=== PATIENT | male | born 2000 | race Hispanic/Latino ===

== ENCOUNTER 2022-09-25 09:08 | Emergency (ER) | payer OTHER, SELFPAY ==
[2022-09-25 09:09] VITALS: BP 166/97; PULSE 96; RESP 18; TEMP 36.3; O2SAT 99; BMI 28.7
--- NOTE | 2022-09-25 09:20 | RAD_ITS ---
STUDY: X-RAY - LEFT HAND, ATTENTION INDEX FINGER REASON FOR EXAM: Male, 22 years old. Laceration. TECHNIQUE: 3 view(s) of the finger were obtained. COMPARISON: None. FINDINGS: Normal metacarpal head. Normal metacarpophalangeal joint. Normal proximal phalanx. Normal middle phalanx. Nondisplaced avulsion type fracture at the base of the distal phalanx of the index finger. Tiny fracture at the tuft of the distal phalanx of the index finger. Normal proximal interphalangeal joint. Normal distal interphalangeal joint. Soft tissue laceration overlying the distal phalanx of the index finger. RAD/Finger(s) Min 2 Views IMPRESSION: Tiny fracture at the tuft of the distal phalanx of the index finger with overlying soft tissue laceration. Nondisplaced avulsion type fracture of the volar aspect of the base of the distal phalanx of the index finger. Electronically Signed: Checo Abrams MD at 10:08 EDT ,
--- NOTE | 2022-09-25 09:22 | EDS_ITS ---
HPI History of Present Illness Chief Complaint: Laceration Informant: patient Narrative Narrative: Healthy 22-year-old with a work related injury, he was cutting wood with a chop saw, the wood got stuck that he was holding with his finger, and moved with a saw, inadvertently cutting him in the left index finger. He is right-hand dominant. Last tetanus unknown he thinks he had vaccination as a child but is not sure, definitely more than 10 years ago if he had it. He is not in a lot of pain. Denies any other injury. PFSH PFSH Medical History no medical history no medical history Allergy/AdvReac Type Severity Reaction Status Date / Time No Known Allergies Allergy Verified 09/25/22 09:12 Surgical History no surgical history Social History Smoking Status: Never smoker ROS ROS ED Constitutional Constitutional ED: Denies chills or fever(s) Musculoskeletal Musculoskeletal: Reports extremity pain; Denies neck pain Integumentary Reports wounds; Denies Abrasions or rash Neurologic Neurologic: Denies paresthesias or weakness EXAM Physical Exam Const Vital Signs: 09/25/22 09:09 Temperature 97.3 F L Temperature Source Temporal Pulse Rate 96 Respiratory Rate 18 Blood Pressure 166/97 H Blood Pressure Mean 120 Pulse Ox 99 Oxygen Delivery Method Room Air Positive well nourished and well developed General Appearance ED: well developed and NAD Neck full ROM and supple Back/Spine normal ROM and normal to inspection Extremity full ROM Extremity Narrative: The pad of the left index finger is avulsed and lost. There is some macerated tissue at the wound margins distally near the nail, they are basically epidermis and there is nothing to repair. The nail is completely with intact, the nailbed appears to be completely intact with the exception of the very distal millimeter which is part of the macerated tissue. There is no bone exposed. There is minimal venous oozing. FDP function intact. Nearby fingers are uninjured. No obvious gross contamination. Neuro oriented x3, no focal motor deficits and no sensory deficits noted Sensorium / Orientation: alert Psych mental status grossly normal and thought process normal Skin Skin Narrative: Left index finger pad avulsion see above for details Rashes: no rashes MDM MDM MDM Narrative Medical decision making narrative: There is nothing to repair here, the bone is not exposed so I do not think he needs rongeur'd or anything else right now except for cleansing, a bulky dressing with bacitracin and iodoform gauze which will be placed by nurses, and prophylactic antibiotics. Three-view x-ray of the left index finger were obtained and on my interpretation, there is just barely involvement of the distal aspect of the tuft. There is an abnormal area at the base of the distal phalanx volar aspect that resembles a chip fracture, but it looks old, and it is away from the immediate area of injury, he can flex the FDP without difficulty, so I do not think this is necessarily part of this injury although there are no old x-rays to compare with, but I think it would be reasonable to start at [facility] for follow-up. Radiology called did acute, I was going to place him in a fingertip splint, however with the bulky dressing he cannot move the DIPJ anyway so I think he is good. He will be given work restrictions, a tetanus update, and follow-up with [facility] for further care. History & Record Review Discussion w/independent historian: Patient and Other (Coworkers who translate adequately) Radiography Diagnostic Testing: Clinical Impression(s) from Imaging Studies Finger X-Ray 09/25/22 09:20 IMPRESSION: Tiny fracture at the tuft of the distal phalanx of the index finger with overlying soft tissue laceration. Nondisplaced avulsion type fracture of the volar aspect of the base of the distal phalanx of the index finger. Electronically Signed: Checo Abrams MD at 10:08 EDT , Procedures Other Procedures Procedure(s): Excisional debridement - 2 small pieces of epidermis in the distal aspect of the macerated finger wound were excised due to being very superficial pieces of epidermis that will not survive and may complicate cleaning of the wound for the patient and make it more painful. Total area of debridement 0.5 square centimeters. Discharge Plan Triage Chief Complaint: Laceration ED Provider: Ceferino Sparks Dx/Rx/DC Orders Clinical Impression: Fingertip avulsion, [id number] (DPT) vaccination administered at current visit, Open fracture of tuft of distal phalanx of finger, Closed avulsion fracture of distal phalanx of finger Instructions: ED Skin Avulsion Primary Care Provider: Care Physician,No Primary Referrals: [facility] [Group of Physicians] - As soon as possible NOT,DEFINED [Non-Staff] - Activity Restrictions/Additional Instructions: In the first 2 or 3 days change the dressing twice daily, reusing the yellow gauze against the skin with antibiotic ointment, and a fresh bulky dressing of gauze around the end of the finger. Print Language: Lithuanian Disposition Disposition: Home, Self Care
[2022-09-25] MEDS: Diphth,Pertuss(Acell),Tet Vac 0.5 ML Vial IM (09:43)
[2022-09-25] MEDS: Ibuprofen 600 MG Tablet PO (09:43)
--- NOTE | 2022-09-25 10:33 | ED.RN ---
pt aware [facility] needs to [facility]
== END 2022-09-25 10:34 | disposition home or self-care (01) ==
PROVIDERS: Emergency Provider Emergency Medicine; Visit Provider Emergency Medicine
DX: S61.211A Laceration without foreign body of left index finger without damage to nail, initial encounter (principal); S62.661A Nondisplaced fracture of distal phalanx of left index finger, initial encounter for closed fracture; W31.2XXA Contact with powered woodworking and forming machines, initial encounter; Z23 Encounter for immunization
CPT/HCPCS: 73140; 90471; 90715; 99283